=== PATIENT | male | born 1995 | race African-American/Black ===

== ENCOUNTER 2016-12-13 14:57 | Emergency (ER) | payer BC ==
[~2016-12-13] VITALS: Ht 175.3 cm; Wt 77.1 kg
[2016-12-13 15:22] VITALS: BP 117/61
--- NOTE | 2016-12-13 16:01 | RAD ---
Indication pain. No history of injury. AP oblique and lateral views of the left knee as well as a sunrise view were obtained. No bony abnormality is seen
--- NOTE | 2016-12-13 16:04 | RAD ---
INDICATION: pain and discomfort. COMPARISON: None. IMPRESSION: Right ankle: 3 views are obtained without definite acute fracture or dislocation.
--- NOTE | 2016-12-13 16:21 | RAD ---
INDICATION: pain in the neck COMPARISON: None. IMPRESSION: Cervical spine: 3 views obtained without definite acute fracture or dislocation.
[2016-12-13] MEDS ORDERED: NAPR500T8 PO (16:36)
[2016-12-13] MEDS ORDERED: CYCL10TA2 PO (16:36)
--- NOTE | 2016-12-13 16:36 | PHYS DOC ---
Past Medical History Past Medical History: No Pertinent History Past Surgical History: Tonsillectomy Alcohol Use: Occasionally Drug Use: Marijuana Adult General Chief Complaint Chief Complaint: MULTIPLE COMPLAINTS HPI HPI Patient is a 21 year old male with no significant medical history who presents today with multiple pain related complaints. Patient states he has had right ankle pain for the last 2 weeks. He states he was seen by Dr. Cruz, he states she did x-rays which were negative. Patient states Dr. Cruz does not know what she is doing. He states he came to the ED to have the ankle looked at. Patient denies any known injury. Patient is also complaining of neck pain and left knee pain for a couple weeks. Patient denies any known injury. He states he would like them x-rayed because he wants to know what's causing him the pain. . Review of Systems Review of Systems Constitutional: Denies fever or chills [] Eyes: Denies change in visual acuity, redness, or eye pain [] Musculoskeletal: Neck pain, right ankle pain, and left knee pain Integument: Denies rash or skin lesions [] Neurologic: Denies headache, focal weakness or sensory changes [] Endocrine: Denies polyuria or polydipsia [] Allergies Allergies Allergies Coded Allergies Type Severity Reaction Last Updated Verified No Known Drug Allergies 12/13/16 No Physical Exam Physical Exam Constitutional: Well developed, well nourished, no acute distress, non-toxic appearance. [] Neck: Normal range of motion, no tenderness, supple, no stridor. [] Skin: Warm, dry, no erythema, no rash. [] Back: No tenderness, no CVA tenderness. [] Extremities: Right ankle is a cum walker boot, no deformity to the right ankle. No tenderness to the right ankle. Full range of motion to the right ankle and toes. +2 right pedal pulse. Cap refill less than 2 seconds the right lower extremity. Sensation intact to the right lower extremity. Left knee with no obvious deformity, no pain or tenderness on palpation of the left knee. Full range of motion to the left knee, negative Khadijah sign and negative Angelita's sign negative anterior-posterior drawer sign to the left knee. +2 left pedal pulse. Neurologic: Alert and oriented X 3, normal motor function, normal sensory function, no focal deficits noted. [] Psychologic: Affect normal, judgement normal, mood normal. [] Current Patient Data Vital Signs Vital Signs Date Time Temp Pulse Resp B/P (MAP) Pulse Ox O2 Delivery O2 Flow Rate FiO2 12/13/16 15:22 100.2 99 20 99 Room Air 100.2 EKG EKG [] Radiology/Procedures Radiology/Procedures []PROCEDURE: CERVICAL SPINE 2-3V INDICATION: pain in the neck COMPARISON: None. IMPRESSION: Cervical spine: 3 views obtained without definite acute fracture or dislocation. DICTATED and SIGNED BY: CAIO MARKS MD DATE: 12/13/16 161 CC: OCTAVIO DAMON APRN; NON,STAFF; GABBI CRUZ MD ~ PROCEDURE: KNEE LEFT 4V Indication pain. No history of injury. AP oblique and lateral views of the left knee as well as a sunrise view were obtained. No bony abnormality is seen DICTATED and SIGNED BY: SHARAN SUÁREZ MD DATE: 12/13/161556 CC: OCTAVIO DAMON APRN; NON,STAFF; GABBI CRUZ MD ~ PROCEDURE: ANKLE RIGHT 3V INDICATION: pain and discomfort. COMPARISON: None. IMPRESSION: Right ankle: 3 views are obtained without definite acute fracture or dislocation. DICTATED and SIGNED BY: CAIO MARKS MD DATE: 12/13/161556 CC: ROSS LOCKHART APRN; NON,STAFF; GABBI CRUZ MD ~ Course & Med Decision Making Course & Med Decision Making Pertinent Labs and Imaging studies reviewed. (See chart for details) Patient is in the ED complaining of neck pain, right ankle pain, and left knee pain. This has been going on for couple weeks. No known injury. He had right ankle x-rays done at the doctor's office and believes his doctor does not know what she is doing. He is requesting more imaging. X-rays of the right ankle, left knee and cervical spine interpreted by radiologist are negative for any acute findings. Provided this patient an orthopedic doctor, and pain clinic for follow-up. Discharged with naproxen and Flexeril. He already has cum boot walker for the right ankle. Dragon Disclaimer Dragon Disclaimer This electronic medical record was generated, in whole or in part, using a voice recognition dictation system. Departure Departure Impression: Primary Impression: Neck pain, acute Additional Impressions: Left knee pain Acute right ankle pain Disposition: 01 HOME, SELF-CARE Condition: STABLE Referrals: GABBI CRUZ MD (PCP) BILL CHAPMAN MD Follow-up in one week Patient Instructions: Ankle Pain, Knee Pain, [id number] Additional Instructions: You were seen for right ankle pain, left knee pain, and neck pain. Your x-rays of the right ankle, left knee, and cervical spine are normal. We provided you a doctor's list including an orthopedic doctor as well as a pain clinic. Follow- up with them. Scripts Naproxen (NAPROXEN) 500 Mg Tablet.dr 1 TAB PO BID, #60 TAB 2 Refills Prov: OCTAVIO DAMON APRN 12/13/16 Cyclobenzaprine Hcl (CYCLOBENZAPRINE HCL) 10 Mg Tablet 1 TAB PO TID, #30 TAB Prov: OCTAVIO DAMON APRN 12/13/16 Problem Qualifiers Additional Impressions: Left knee pain Chronicity: acute Qualified Codes: M25.562 - Pain in left knee OCTAVIO DAMON APRN Dec 13, 2016 16:36
== END 2016-12-13 16:39 | disposition home or self-care (01) ==
LOC: ER 14:57
DX: M25.571 Pain in right ankle and joints of right foot (principal); M25.562 Pain in left knee; M54.2 Cervicalgia; F12.10 Cannabis abuse, uncomplicated
CPT/HCPCS: 72040; 73564; 73610; 99284